=== PATIENT | male | born 1990 | race Caucasian/White ===

== ENCOUNTER 2023-12-15 09:31 | Emergency (ER) | payer MEDICAID ==
[~2023-12-15] VITALS: Ht 185.4 cm; Wt 147.7 kg
[2023-12-15 09:33] VITALS: TEMP 96.2
[2023-12-15] MEDS ORDERED: NO HOME MEDS (10:06)
[2023-12-15 13:39] LABS: C DIFF ANTIGEN NEGATIVE (NEGATIVE); C DIFF SPECIMEN=DIARRHEA? ACCEPTABLE; C DIFFICILE TOXINS A&B NEGATIVE (Neg)
[2023-12-15] MEDS: diphenoxylate/atropine tablet (Lomotil) PO ONE (13:52)
[2023-12-15] MEDS ORDERED: DIPH-186 PO (14:48)
[2023-12-15 15:45] VITALS: BP 129/84; PULSE 87; RESP 14; O2SAT 99
== END 2023-12-15 15:10 | disposition home or self-care (01) ==
LOC: ER 09:32
DX: R19.7 Diarrhea, unspecified (principal); R10.30 Lower abdominal pain, unspecified
CPT/HCPCS: 74176; 87045; 87046; 87324; 87449; 99284